=== PATIENT | male | born 1940 | race Caucasian/White ===

== ENCOUNTER → 2017-09-24 | Outpatient (CLI) | payer MEDICARE, OTHER ==
[2017-09-24 15:28] LABS: INTERNATIONAL NORM RATIO 1.5 (2.0-3.5)
[2017-09-25 08:12] LABS: PROSTATE SPECIFIC AG FREE 1.69 ng/mL; PROSTATE SPECIFIC AG, SERUM 5.4 ng/mL (0.0-4.0)
== END | disposition home or self-care (01) ==
LOC: LAB 14:46
PROVIDERS: Family Medicine
DX: R97.20 Elevated prostate specific antigen [PSA] (principal); Z79.01 Long term (current) use of anticoagulants